=== PATIENT | female | born 1950 | race Caucasian/White ===

== ENCOUNTER 2017-04-02 16:44 | Emergency (ER) | payer OTHER ==
--- NOTE | 2017-04-05 13:48 | ER ---
ADMIT: 04/02/2017 RM/LOC: ER [facility] MR#: [id number] [id number] [address] MO[place] [facility] [place] [address] Emergency Room Report SEX: F AGE: 66 : 1950 DATE: 04/02/2017 CHIEF COMPLAINT: Right flank pain, nausea, vomiting. HISTORY OF PRESENT ILLNESS: A 66-year-old white female, who presents to the ER with worsening nausea and vomiting for the past 2 days. States she was diagnosed with a kidney stone 2 weeks ago. She has been following with Dr. Trejo who recommended lithotripsy later this week. States she has an appointment for surgery on Tuesday. She was given a script for Zofran and Percocet. States she cannot keep any of her pain meds down as she has such severe nausea and refractory vomiting. States she continues to have the flank pain, very sharp, however, improving at this time and she was able to keep her last dose of Percocet down. Admits to nausea, vomiting, loss of appetite. No fever, chills, diarrhea. Worse with food, relieved by nothing at this point. States even the Zofran makes her nauseated and throw up. ALLERGIES: PENICILLIN AND CODEINE. COURSE IN THE EMERGENCY ROOM: The patient was seen and examined. GENERAL: Afebrile. Mildly distressed. HEART: Regular rate and rhythm. CHEST: Clear to auscultation. ABDOMEN: Soft. She does have some mild tenderness to the right lower quadrant as well as the right low back. She has normal bowel sounds. BACK: Has some right CVA tenderness. SKIN: Otherwise warm, dry, intact. EXTREMITIES: Nontender. No pedal edema. NEUROLOGICAL: She is alert, oriented, cooperative with exam. While in the ER today, I did start an IV. She was given a liter of normal saline. She was given 10 mg of Reglan IV as well as 25 mg of Benadryl. She states she is feeling mildly improved. She is able to tolerate Javi crackers and some fluids. Ready for discharge. ADMIT: 04/02/2017 RM/LOC: ER [facility] MR#: [id number] [address] [place] [address] Emergency Room Report SEX: F AGE: 66 : 1950 IMPRESSION: 1. Nausea and vomiting. 2. Ureterolithiasis to be lithotripsied on Tuesday. DISPOSITION: Patient was given a script for Reglan 10 mg 1 tab p.o. every 6 hours as needed for nausea #20. She is to follow BRAT diet, increase fluids, continue home medications. Return with worsening signs. Follow up with Dr. Ruiz or Neil as needed. Questions sought and answered best of my ability and patient's satisfaction. Discharged in stable condition. HEATHER Callahan / Cayetano Arrington MD / modl JOB #: [id number] CC: Cayetano Arrington MD, Attending Physician Dayron Ruiz MD, Family Physician R Jass Trejo MD
== END 2017-04-02 18:30 | disposition home or self-care (01) ==
LOC: ER 16:44
DX: N20.1 Calculus of ureter (principal); I10 Essential (primary) hypertension; E78.5 Hyperlipidemia, unspecified; Z87.440 Personal history of urinary (tract) infections; Z88.0 Allergy status to penicillin; Z88.5 Allergy status to narcotic agent; Z79.82 Long term (current) use of aspirin; Z79.899 Other long term (current) drug therapy